=== PATIENT | male | born 1955 | race Caucasian/White ===

== ENCOUNTER 2018-07-02 00:28 | Inpatient (IN) | payer MEDICARE, MEDICAID ==
[~2018-07-02] VITALS: Ht 177.8 cm; Wt 70.9 kg
[2018-07-02] MEDS ORDERED: SODIUM CHLORIDE 0.9% 1,000 ML IVB ONE (01:10)
[2018-07-02 01:51] LABS: Basophils # (auto) 0 uL; Basophils % (auto) 0.2 % (0.0-2.0); Eosinophils # (auto) 0.1 uL; Eosinophils % (auto) 0.6 % (0.0-7.0); Hematocrit 41.8 % (41.0-53.0); Hemoglobin 14.6 g/dL (13.5-17.5); Lymphocytes % (auto) 10.2 % (10.0-50.0); Mean Corpuscular Hemoglobin 34.5 pg (28.0-32.0); Mean Corpuscular Hgb Conc. 34.9 g/dL (32.0-36.0); Mean Corpuscular Volume 98.8 fL (80.0-100.0); Monocytes # (auto) 0.4 uL; Monocytes % (auto) 4.1 % (0.0-12.0); Neutrophils # (auto) 8.1 uL; Neutrophils % (auto) 84.9 % (37.0-80.0); Platelet Count (auto) 76 10^3/uL (140-450); Red Blood Cells 4.23 10^6/uL (4.5-5.90); Red Cell Distribution Width 13.3 % (11.8-14.3); White Blood Cell 9.5 10^3/uL (4.4-10.8)
[2018-07-02 01:57] LABS: Blood Alcohol < 3.0 mg/dL (0-5); Magnesium 2.2 mg/dL (1.6-2.6)
[2018-07-02 01:58] LABS: Albumin 3.5 g/dL (3.4-5.0); BUN/Creatinine Ratio 12.9; Potassium 3.3 mmol/L (3.5-5.1)
[2018-07-02 02:01] LABS: Bilirubin, Total 0.8 mg/dL (0.2-1.0); INR 0.98 (0.9-1.15); Partial Thromboplastin Time 20.8 sec (23.78-33.04); Prothrombin Time 10.5 sec (9.27-12.13); Total Protein 6.8 g/dL (6.4-8.2)
[2018-07-02] MEDS ORDERED: TEMAZEPAM 15 MG CAP PO PRN (04:15)
[2018-07-02] MEDS ORDERED: cloNIDine HCL 0.1 MG TAB PO PRN (04:15)
[2018-07-02] MEDS ORDERED: POTASSIUM CHL 20MEQ/100ML 100 ML IV ONE (04:15)
[2018-07-02] MEDS ORDERED: MORPHINE SULFATE 4 MG/ML SYR/VIAL IV PRN (04:15)
[2018-07-02] MEDS ORDERED: hydrALAZINE HCL 20 MG/ML VL IV ONE (04:15)
[2018-07-02] MEDS ORDERED: NITROGLYCERIN 0.4 MG SL TAB SL PRN (04:15)
[2018-07-02] MEDS ORDERED: LORazepam 2MG/ML-1ML VIAL IV PRN ×2 (04:15)
[2018-07-02] MEDS ORDERED: ONDANSETRON HCL 4 MG/2 ML VIAL IV PRN (04:15)
[2018-07-02 04:58] LABS: Urine Amorphous Crystal FEW /hpf (None Seen); Urine Bacteria NONE SEEN /hpf (None Seen); Urine Blood Negative /uL (Negative); Urine Specific Gravity 1.008 (1.001-1.035); Urine WBC <1 /hpf (0 - 3)
[2018-07-02 05:09] LABS: Alcohol, Urine < 3.0 mg/dL (0-5); Amphetamine Screen, Urine NEGATIVE (NEGATIVE); Barbiturate Scree,Urine NEGATIVE (NEGATIVE); Benzodiazephine Screen, Urine NEGATIVE (NEGATIVE); Cannabinoid Screen, Urine NEGATIVE (NEGATIVE); Cocaine Screen, Urine NEGATIVE (NEGATIVE); Opiate Scree,Urine NEGATIVE (NEGATIVE); Phencyclidine Screen, Urine NEGATIVE (NEGATIVE)
[2018-07-02] MEDS: SODIUM CHLORIDE 0.9% 1,000 ML IV SCH ×4 (06:37→20:06)
[2018-07-02] MEDS ORDERED: LORazepam 2MG/ML-1ML VIAL IV ONE (06:45)
[2018-07-02] MEDS: FAMOTIDINE 20 MG TAB PO SCH ×2 (10:00→22:28)
[2018-07-02 11:50] VITALS: BP 155/76
[2018-07-02] MEDS ORDERED: SODIUM CHLORIDE 0.9% 1,000 ML IV SCH (15:30)
[2018-07-02 15:51] VITALS: BP 166/90
[2018-07-02 16:04] VITALS: BP 144/90
[2018-07-02] MEDS ORDERED: TAMS0.4C36 PO (16:43)
[2018-07-02] MEDS ORDERED: LISI-646 PO (16:43)
[2018-07-02] MEDS: ALUM & MAG HYDROX-SIMETH LIQ(MAALOX) 30 ML PO PRN (19:59)
[2018-07-02 20:00] VITALS: BP 150/94
[2018-07-02] MEDS ORDERED: HYDROcodone-ACET 5/325MG TAB PO ONE (22:00)
[2018-07-02] MEDS ORDERED: IOHEXOL 350 MG/ML 100ML IJ ONE (22:05)
[2018-07-03] VITALS: BP 121/89
[2018-07-03 04:00] VITALS: BP 154/97
[2018-07-03] MEDS: SODIUM CHLORIDE 0.9% 1,000 ML IV SCH ×3 (04:16→20:55)
[2018-07-03] MEDS: ALUM & MAG HYDROX-SIMETH LIQ(MAALOX) 30 ML PO PRN ×2 (04:25→14:54)
[2018-07-03 07:14] LABS: Albumin 3.4 g/dL (3.4-5.0); Calcium 8.2 mg/dL (8.5-10.1); Potassium 3.7 mmol/L (3.5-5.1)
[2018-07-03 07:17] LABS: BUN/Creatinine Ratio 10.9
[2018-07-03 07:19] LABS: Bilirubin, Total 1.1 mg/dL (0.2-1.0)
[2018-07-03 07:39] LABS: Basophils # (auto) 0 uL; Basophils % (auto) 0.3 % (0.0-2.0); Eosinophils # (auto) 0.1 uL; White Blood Cell 7.4 10^3/uL (4.4-10.8)
[2018-07-03 07:42] LABS: Eosinophils % (auto) 0.9 % (0.0-7.0); Hematocrit 43.6 % (41.0-53.0); Hemoglobin 14.8 g/dL (13.5-17.5); Lymphocytes # (auto) 1.2 uL; Lymphocytes % (auto) 15.5 % (10.0-50.0); Mean Corpuscular Hemoglobin 34.4 pg (28.0-32.0); Mean Corpuscular Hgb Conc. 34.1 g/dL (32.0-36.0); Monocytes # (auto) 0.6 uL; Monocytes % (auto) 7.4 % (0.0-12.0); Neutrophils # (auto) 5.6 uL; Neutrophils % (auto) 75.9 % (37.0-80.0); Platelet Count (auto) 227 10^3/uL (140-450); Red Blood Cells 4.32 10^6/uL (4.5-5.90); Red Cell Distribution Width 13.5 % (11.8-14.3)
[2018-07-03 08:00] VITALS: BP 162/99
[2018-07-03] MEDS: FAMOTIDINE 20 MG TAB PO SCH ×2 (10:00→21:01)
[2018-07-03] MEDS ORDERED: FLEET ENEMA(ADULT) 135 ML PR ONE (10:15)
[2018-07-03] MEDS ORDERED: ACETAMINOPHEN 325 MG TAB PO PRN (10:15)
[2018-07-03] MEDS: HYDROcodone-ACET 5/325MG TAB PO PRN ×2 (14:29→21:02)
[2018-07-03 16:15] VITALS: BP 142/92
[2018-07-03 19:47] VITALS: BP 153/95
[2018-07-04] VITALS: BP 149/95
[2018-07-04 04:00] VITALS: BP 148/92
[2018-07-04 05:37] LABS: Basophils # (auto) 0 uL; Eosinophils # (auto) 0.1 uL; Monocytes # (auto) 0.6 uL
[2018-07-04 05:41] LABS: Basophils % (auto) 0.3 % (0.0-2.0); Eosinophils % (auto) 1.3 % (0.0-7.0); Hematocrit 40.3 % (41.0-53.0); Hemoglobin 14.2 g/dL (13.5-17.5); Lymphocytes # (auto) 1.1 uL; Lymphocytes % (auto) 13.5 % (10.0-50.0); Mean Corpuscular Hemoglobin 35.2 pg (28.0-32.0); Mean Corpuscular Hgb Conc. 35.3 g/dL (32.0-36.0); Mean Corpuscular Volume 99.9 fL (80.0-100.0); Neutrophils # (auto) 6.2 uL; Neutrophils % (auto) 77.9 % (37.0-80.0); Platelet Count (auto) 200 10^3/uL (140-450); Red Blood Cells 4.03 10^6/uL (4.5-5.90); Red Cell Distribution Width 13.3 % (11.8-14.3)
[2018-07-04 06:15] LABS: Potassium 3.5 mmol/L (3.5-5.1)
[2018-07-04 06:23] LABS: Albumin 3.3 g/dL (3.4-5.0); BUN/Creatinine Ratio 18.9; Bilirubin, Total 0.7 mg/dL (0.2-1.0); Calcium 7.9 mg/dL (8.5-10.1); Total Protein 6.6 g/dL (6.4-8.2)
[2018-07-04] MEDS: SODIUM CHLORIDE 0.9% 1,000 ML IV SCH ×2 (06:31→15:36)
[2018-07-04 07:45] VITALS: BP 164/100
[2018-07-04] MEDS: FAMOTIDINE 20 MG TAB PO SCH (09:05)
[2018-07-04 12:00] VITALS: BP 153/103
[2018-07-04 14:39] VITALS: BP 172/116
[2018-07-04] MEDS ORDERED: PANTOPRAZOLE 40 MG TAB PO SCH (14:45)
== END 2018-07-04 16:02 | disposition left against medical advice (07) | DRG 100 ==
LOC: EDUNIT# 00:28 → ER 00:28 → EDBD 00:28 → TELE 04:17 → DOU IN ICU 08:56 → CENTRAL 07-04 14:18
PROVIDERS: ADMIT Nurse Practitioner; ATTEND Family Medicine
DX: G40.409 Other generalized epilepsy and epileptic syndromes, not intractable, without status epilepticus (principal); G93.41 Metabolic encephalopathy; S22.32XA Fracture of one rib, left side, initial encounter for closed fracture; E87.1 Hypo-osmolality and hyponatremia; S27.9XXA Injury of unspecified intrathoracic organ, initial encounter; E87.0 Hyperosmolality and hypernatremia; K22.9 Disease of esophagus, unspecified; K40.90 Unilateral inguinal hernia, without obstruction or gangrene, not specified as recurrent; I10 Essential (primary) hypertension; Z53.21 Procedure and treatment not carried out due to patient leaving prior to being seen by health care provider; K80.80 Other cholelithiasis without obstruction; E87.6 Hypokalemia; X58.XXXA Exposure to other specified factors, initial encounter; K80.20 Calculus of gallbladder without cholecystitis without obstruction; N28.1 Cyst of kidney, acquired; Y93.89 Activity, other specified; Y92.89 Other specified places as the place of occurrence of the external cause; Y99.8 Other external cause status
CPT/HCPCS: 36415; 51702; 70450; 71045; 71250; 71275; 74176; 80053; 80307; 80320; 81001; 82550; 82962; 83735; 84295; 85025; 85379; 85610; 85730; 87081; 93005; 94761; 95819; 96361; 96374; 96375; A6257; G0378; J3480